=== PATIENT | female | born 1990 | race Hispanic/Latino ===

== ENCOUNTER 2021-02-23 01:30 | Inpatient (IN) | payer MEDICAID, OTHER ==
[~2021-02-23] VITALS: Ht 170.2 cm; Wt 93.4 kg
[2021-02-23 02:09] LABS: APPEARANCE,URINE CLOUDY (CLEAR); BILIRUBIN,URINE Negative (NEGATIVE); COLOR,URINE Yellow (YELLOW); GLUCOSE, URINE (UA) Negative (NEGATIVE); KETONES,URINE Negative (NEGATIVE); LEUKOCYTE ESTERASE ,URINE Trace (NEGATIVE); NITRATE,URINE Negative (NEGATIVE); OCCULT BLOOD,URINE Nonhemolyzed Trace (NEGATIVE); PH,URINE 6.5 (5.0-8.0); PROTEIN,URINE POS 1+ mg/dL (NEGATIVE); UROBILINOGEN,URINE 0.2 mg/dL (0.2-1.0)
[2021-02-23] MEDS: LACTATED RINGERS 1000ML 1,000 ML IV SCH ×2 (02:15→05:21)
[2021-02-23 02:16] LABS: AMPHET/METH SCREEN,URINE NEGATIVE (NEGATIVE); BACTERIA,URINE Many /HPF (None Seen); BARBITURATE SCREEN, URINE NEGATIVE (NEGATIVE); BENZODIAZEPINES SCREEN,URINE NEGATIVE (NEGATIVE); CANNABINOID SCREEN,URINE NEGATIVE (NEGATIVE); COCAINE SCREEN,URINE NEGATIVE (NEGATIVE); OPIATE SCREEN,URINE NEGATIVE (NEGATIVE); PHENCYCLIDINE SCREEN,URINE NEGATIVE (NEGATIVE)
[2021-02-23 02:31] LABS: HEMATOCRIT 33.3 % (36-48); MEAN CORPUSCULAR HEMOGLOBIN 26.9 pg (27.0-33.0); MEAN CORPUSCULAR HGB CONC 32.7 g/dL (32.0-36.0); MEAN CORPUSCULAR VOLUME 82.2 fL (79-99); RED BLOOD CELL COUNT(AUTO) 4.05 MIL/uL (4.00-5.50); RED CELL DISTRIBUTION WIDTH 14.9 % (11.0-15.5); WHITE BLOOD COUNT (AUTO) 13.2 K/uL (4.8-10.8)
[2021-02-23] MEDS ORDERED: AMPICILLIN 2GM+NS 100ML 100 ML IV ONE (02:35)
[2021-02-23] MEDS ORDERED: LORA5SOL62 PO (02:50)
[2021-02-23] MEDS ORDERED: PREN1COM14 PO (02:50)
[2021-02-23 02:51] VITALS: BP 117/62
[2021-02-23] MEDS ORDERED: AMPICILLIN 2GM+NS 100ML 100 ML IV SCH (03:00)
[2021-02-23] MEDS ORDERED: OXYTOCIN-LR 20 UNITS/1000 ML 1,000 ML IV SCH (04:00)
[2021-02-23] MEDS ORDERED: NALOXONE HCL 0.4 MG/1 ML ML IV PRN (05:30)
[2021-02-23] MEDS ORDERED: EPHEDRINE SULFATE 50 MG/ML AMPULE IVP PRN (05:30)
[2021-02-23] MEDS ORDERED: ROPIVACAINE 0.2% 100ML VIAL 100 ML EP SCH (05:30)
[2021-02-23] MEDS ORDERED: LACTATED RINGERS 500 ML 500 ML IV PRN (05:30)
[2021-02-23] MEDS ORDERED: AMPICILLIN 1GM+NS 50ML 50 ML IV SCH (07:00)
[2021-02-23] MEDS ORDERED: LIDOCAINE HCL MPF 1% 5ML VIAL ONE (09:01)
[2021-02-23 10:27] LABS: RAPID PLASMA REAGIN NONREACTIVE (NONREACTIVE)
[2021-02-23] MEDS ORDERED: BENZOCAINE/LANOLIN/ALOE VERA 60 ML AEROSOL TP PRN (12:30)
[2021-02-23] MEDS ORDERED: LANOLIN 30GM OINTMENT TP PRN (12:30)
[2021-02-23] MEDS ORDERED: WITCH HAZEL 1 PAD TP PRN (12:30)
[2021-02-23] MEDS ORDERED: ACETAMINOPHEN WITH CODEINE 1 TAB TAB PO PRN (12:30)
[2021-02-23] MEDS ORDERED: ACETAMINOPHEN 325 MG TAB PO PRN (12:30)
[2021-02-23] MEDS ORDERED: MEASLES/MUMPS/RUBELLA VACCINE, LIVE 0.5 ML/VIAL SQ PRN (12:30)
[2021-02-23] MEDS ORDERED: DIPH,PERTUSS(ACELL),TET VAC/PF 0.5 ML VIAL IM PRN (12:30)
[2021-02-23] MEDS: OXYTOCIN-LR 20 UNITS/1000 ML 1,000 ML IV SCH (12:36)
[2021-02-23] MEDS: IBUPROFEN 600 MG TABLET PO PRN (14:11)
[2021-02-23 16:13] VITALS: BP 128/71
[2021-02-23 16:48] VITALS: BP 131/68
[2021-02-23 19:25] VITALS: BP 119/75
[2021-02-23] MEDS: DOCUSATE SODIUM 100 MG CAP PO SCH (21:14)
[2021-02-23 23:21] VITALS: BP 118/73
[2021-02-24] MEDS: OXYTOCIN-LR 20 UNITS/1000 ML 1,000 ML IV SCH (02:00)
[2021-02-24] MEDS: LACTATED RINGERS 1000ML 1,000 ML IV SCH (02:00)
[2021-02-24 03:39] VITALS: BP 126/78
[2021-02-24 05:05] LABS: HEMATOCRIT 27.6 % (36-48); MEAN CORPUSCULAR HEMOGLOBIN 26.4 pg (27.0-33.0); MEAN CORPUSCULAR HGB CONC 31.9 g/dL (32.0-36.0); MEAN CORPUSCULAR VOLUME 82.9 fL (79-99); RED BLOOD CELL COUNT(AUTO) 3.33 MIL/uL (4.00-5.50); RED CELL DISTRIBUTION WIDTH 15.2 % (11.0-15.5); WHITE BLOOD COUNT (AUTO) 15.7 K/uL (4.8-10.8)
[2021-02-24 06:12] LABS: HEPATITIS Bs ANTIGEN SCREEN P Negative (Negative)
[2021-02-24] MEDS: IBUPROFEN 600 MG TABLET PO PRN (07:12)
[2021-02-24 07:13] VITALS: BP 124/82
[2021-02-24] MEDS: DOCUSATE SODIUM 100 MG CAP PO SCH (08:32)
[2021-02-24 11:04] VITALS: BP 103/52
[2021-02-24] MEDS ORDERED: IBUP-2070 PO (11:15)
== END 2021-02-24 13:45 | disposition home or self-care (01) | DRG 807 ==
LOC: EDH 01:30 → OBSVTOIN 01:31 → LDH 01:31 → WSH 13:40
PROVIDERS: ADMIT Obstetrics & Gynecology; ATTEND Obstetrics & Gynecology
PROC: 10E0XZZ Delivery of Products of Conception, External Approach (ICD-10-PCS; principal; 2021-02-24)
PROC: 0KQM0ZZ Repair Perineum Muscle, Open Approach (ICD-10-PCS; 2021-02-24)
PROC: 3E0R3BZ Introduction of Anesthetic Agent into Spinal Canal, Percutaneous Approach (ICD-10-PCS; 2021-02-24)
PROC: 00HU33Z Insertion of Infusion Device into Spinal Canal, Percutaneous Approach (ICD-10-PCS; 2021-02-24)
PROC: 3E0234Z Introduction of Serum, Toxoid and Vaccine into Muscle, Percutaneous Approach (ICD-10-PCS; 2021-02-24)
DX: O70.1 Second degree perineal laceration during delivery (principal); Z37.0 Single live birth; Z3A.39 39 weeks gestation of pregnancy; Z23 Encounter for immunization
CPT/HCPCS: 36415; 76805; 80305; 81001; 85027; 86156; 86592; 86701; 86850; 86870; 86900; 86901; 86922; 87088; 87340; 87390; 90715; A4314; G0378; J0290; J2590; J2795; J3490; J7120